=== PATIENT | male | born 1940 ===

== ENCOUNTER → 2018-06-14 | Outpatient (CLI) | payer MEDICARE | LOC: LAB 18:31 → LAB SHORT 18:31 | DX: Z48.817 Encounter for surgical aftercare following surgery on the skin and subcutaneous tissue (principal); Z48.02 Encounter for removal of sutures; L08.9 Local infection of the skin and subcutaneous tissue, unspecified | CPT/HCPCS: 87070; 87077; 87147; 87186; 87205 ==